=== PATIENT | female | born 1970 | race Caucasian/White ===

== ENCOUNTER 2016-11-10 13:34 | Emergency (ER) | payer OTHER ==
[~2016-11-10 13:34] MED LIST: ACETAMINOPHEN PO; ALPRAZOLAM PO; BACTRIM DS TABL1 TA1 PO; DICLOFENAC PO; FLAGYL PO; LORTAB; LORTAB 10/500 T1 TAB; LORTAB 7.5-5001 TAB PO; MEDROL PO; NORCO 10/325 TA1 TAB PO; OXYCONTIN PO; PERCOCET10 PO; ULTRAM PO; XANAX1 MG PO
== END 2016-11-10 13:44 | disposition home or self-care (01) ==
LOC: CFTX 13:34
DX: L01.00 Impetigo, unspecified (principal); H62.41 Otitis externa in other diseases classified elsewhere, right ear; F17.210 Nicotine dependence, cigarettes, uncomplicated; Z88.5 Allergy status to narcotic agent; Z88.8 Allergy status to other drugs, medicaments and biological substances
CPT/HCPCS: 99282

== ENCOUNTER 2017-04-15 20:54 | Emergency (ER) | payer OTHER | END 2017-04-15 23:25 | disposition home or self-care (01) | LOC: CFTX 20:54 → CED 20:54 → CFTX 22:31 | DX: H10.31 Unspecified acute conjunctivitis, right eye (principal); Z90.710 Acquired absence of both cervix and uterus; Z88.0 Allergy status to penicillin; Z88.5 Allergy status to narcotic agent; Z91.040 Latex allergy status; F17.210 Nicotine dependence, cigarettes, uncomplicated | CPT/HCPCS: 99283 ==